=== PATIENT | male | born 1970 | race African-American/Black ===

== ENCOUNTER → 2017-10-24 | Outpatient (CLI) | payer OTHER | LOC: M RAD 09:03 | DX: M54.2 Cervicalgia (principal) ==

== ENCOUNTER 2018-08-02 08:47 | Emergency (ER) | payer OTHER | END 2018-08-02 09:59 | disposition home or self-care (01) | LOC: M ED 08:47 | DX: H69.91 Unspecified Eustachian tube disorder, right ear (principal); R42 Dizziness and giddiness; Z79.899 Other long term (current) drug therapy | CPT/HCPCS: 93005 ==

== ENCOUNTER → 2018-10-25 | Outpatient (CLI) | payer OTHER ==
[~2018-10-25] MED LIST: FLON1SPR NARES; MECL-68 PO; MELO15TA28 PO; SUDA30TA8 PO; TRIA37.53 PO; VITA100066 PO
[2018-10-25 12:28] LABS: POTASSIUM SERUM 3.6 MEQ/L (3.5-5.1)
== END ==
LOC: M LAB 11:31
PROVIDERS: ATTEND Specialist
DX: H81.01 Meniere's disease, right ear (principal)